=== PATIENT | male | born 1985 | race Two or more races ===

== ENCOUNTER 2017-04-16 11:24 | Emergency (ER) | payer MEDICAID ==
[~2017-04-16] VITALS: Ht 167.6 cm; Wt 63.5 kg
[2017-04-16 14:35] VITALS: BP 150/90
== END 2017-04-16 14:44 | disposition home or self-care (01) ==
LOC: ER 11:24
DX: J02.9 Acute pharyngitis, unspecified (principal); J40 Bronchitis, not specified as acute or chronic